=== PATIENT | male | born 1985 | race Caucasian/White ===

== ENCOUNTER 2020-05-25 14:49 | Emergency (ER) | payer OTHER ==
[~2020-05-25] VITALS: Ht 175.3 cm; Wt 112.9 kg
[2020-05-25 14:57] VITALS: Ht 175.3 cm; Wt 112.9 kg
[2020-05-25 16:41] VITALS: BP 135/80
== END 2020-05-25 16:41 | disposition home or self-care (01) ==
LOC: ED 14:49
DX: S82.832A Other fracture of upper and lower end of left fibula, initial encounter for closed fracture (principal); W17.2XXA Fall into hole, initial encounter; Y93.89 Activity, other specified; Y92.89 Other specified places as the place of occurrence of the external cause; Y99.0 Civilian activity done for income or pay
CPT/HCPCS: Q0092